=== PATIENT | female | born 1995 | race Caucasian/White ===

== ENCOUNTER 2021-08-22 01:49 | Emergency (ER) | payer OTHER ==
[~2021-08-22] VITALS: Ht 165.1 cm; Wt 114.8 kg
[2021-08-22 01:54] VITALS: BP 136/62
--- NOTE | 2021-08-22 01:59 | NUR ---
patient to bed 11 ambulatory
--- NOTE | 2021-08-22 02:11 | NUR ---
Patient discharged with v/s stable BY ERMD. Written and verbal after care instructions given and explained. Patient verbalized understanding. Ambulatory with steady gait. All questions addressed prior to discharge. Advised to follow up with PMD.
[2021-08-22 02:12] VITALS: BP 136/62
== END 2021-08-22 02:11 | disposition home or self-care (01) ==
LOC: MED 01:49
DX: R04.0 Epistaxis (principal); E05.90 Thyrotoxicosis, unspecified without thyrotoxic crisis or storm
CPT/HCPCS: 99282

== ENCOUNTER 2022-03-10 16:20 | Inpatient (IN) | payer OTHER ==
[~2022-03-10] VITALS: Ht 165.1 cm; Wt 106.6 kg
[2022-03-10 16:24] VITALS: BP 128/68
--- NOTE | 2022-03-10 17:02 | NUR ---
PT AMBULATED TO ER BED 9
[2022-03-10] MEDS ORDERED: DICYCLOMINE HCL LIQUID 20 MG, ALUMINUM HYD/MAG/SIMETHICONE 30 ML, LIDOCAINE VISCOUS 2% ... PO ONE ×3 (17:20)
[2022-03-10] MEDS ORDERED: MORPHINE SULFATE 4 MG/ML SYR IVP ONE (17:20)
[2022-03-10] MEDS ORDERED: ONDANSETRON 4 MG/2 ML VIAL IVP ONE (17:20)
[2022-03-10] MEDS ORDERED: ALUMINUM HYD/MAG/SIMETHICONE 30 ML UDC ONE (17:27)
[2022-03-10] MEDS ORDERED: DICYCLOMINE HCL LIQUID 10 MG/5 ML UDC ONE (17:27)
[2022-03-10 17:35] LABS: APPEARANCE,URINE CLEAR (CLEAR); BILIRUBIN,URINE 1+ (NEGATIVE); BLOOD, URINE 1+ (NEGATIVE); COLOR,URINE YELLOW (YELLOW); LEUKOCYTE ESTERASE ,URINE NEGATIVE (NEGATIVE); NITRITE, URINE NEGATIVE (NEGATIVE); UGLUCOSE NEGATIVE (NEGATIVE)
[2022-03-10 17:39] LABS: BASOPHILS % (AUTO) 0.3 % (0.0-2.0); EOSINOPHILS # (AUTO) 0.1 K/uL (0-0.4); EOSINOPHILS % (AUTO) 0.6 % (0.0-4.0); HEMATOCRIT 42.5 % (36-48); LYMPHOCYTES # (AUTO) 2.1 K/uL (2.5-16.5); LYMPHOCYTES % (AUTO) 17.4 % (20.5-51.1); MEAN CORPUSCULAR HEMOGLOBIN 27 pg (27-31); MEAN CORPUSCULAR HGB CONC 33 g/dL (33-37); MEAN CORPUSCULAR VOLUME 82.3 fL (80-94); MONOCYTES # (AUTO) 0.9 K/uL (0.8-1.0); MONOCYTES % (AUTO) 7.7 % (1.7-9.3); NEUTROPHILS # (AUTO) 8.8 K/uL (1.8-7.7); PLATELET COUNT (AUTO) 343 K/uL (140-450); RED BLOOD CELL COUNT(AUTO) 5.17 MIL/uL (4.20-5.40); RED CELL DISTRIBUTION WIDTH 14.3 % (11.6-13.7); WHITE BLOOD COUNT (AUTO) 11.9 K/uL (4.8-10.8)
[2022-03-10 17:53] LABS: ALBUMIN 3.2 g/dL (3.4-5.0); ANION GAP 9.4 (8-16); CARBON DIOXIDE 27.3 mmol/L (21-32); CREATININE 0.9 mg/dL (0.6-1.3); POTASSIUM 3.7 mmol/L (3.5-5.1); TOTAL BILIRUBIN 1.6 mg/dL (0.0-1.0)
[2022-03-10 18:01] LABS: WBC,URINE NONE SEEN /HPF (0-5)
--- NOTE | 2022-03-10 18:10 | NUR ---
PT C/O RUQ ABDOMINAL PAIN WITH BURNING X2 DAYS. IV INSERTED TO RIGHT AC #20GUAGE. MEDICATED PER ORDER. US AT BEDSIDE
[2022-03-10] MEDS ORDERED: MORPHINE SULFATE 4 MG/ML SYR IVP PRN (18:40)
[2022-03-10] MEDS ORDERED: NACL 0.9% 1,000 ML IV ONE (18:40)
[2022-03-10] MEDS ORDERED: LEVO0.124 PO (19:37)
--- NOTE | 2022-03-10 19:37 | NUR ---
VINCE/SAV SWABBED AND WALKED TO LAB
[2022-03-10] MEDS ORDERED: MAG SULF 2000 MG/WATER PREMIX 50 ML IV PRN (20:15)
[2022-03-10] MEDS ORDERED: POTASSIUM CHLORIDE 10 MEQ TABER PO PRN (20:15)
[2022-03-10] MEDS ORDERED: ACETAMINOPHEN 325 MG TAB PO PRN (20:15)
[2022-03-10] MEDS ORDERED: HYDROcodone/APAP 5/325 MG 1 TAB TAB PO PRN (20:15)
[2022-03-10] MEDS ORDERED: MAGNESIUM OXIDE 400 MG TAB PO PRN (20:15)
[2022-03-10] MEDS ORDERED: KCL 20 MEQ/WATER INJ PREMIX 200 ML IV PRN (20:15)
--- NOTE | 2022-03-10 21:35 | NUR ---
Patient will be admitted to care of DR OSMAN. Admited to Med/Surg. Will go to room 104B. Belongings list completed. Report to YANET ROSS.
--- NOTE | 2022-03-10 21:35 | NUR ---
RECEIVED PATIENT FROM ER AND ADMITTED TO ROOM 104B VIA GURNEY. AWAKE, ALERT, AND ABLE TO MAKE NEEDS KNOWN. VERBALLY RESPONSIVE. PT AMBULATE ON STEADY GAIT INDEPENDENTLY. SKIN INTACT AND DRY. NO APPARENT SKIN PROBLEM. IV SITE ON LEFT AC INTACT AND PATENT. BEARABLE & TOLERABLE PAIN OF 1/10 ON EPIGASTRIC AREA FELT. PT IS ON NPO EXCEPT MEDS. ORIENT PT TO ROOM AND SURROUNDINGS AND HOW TO USE CONTROLLER DEVICE IN THE ROOM. PATIENT VERBALIZED UNDERSTANDING.
[2022-03-10] MEDS: LACTATED RINGERS 1,000 ML IV SCH (22:00)
--- NOTE | 2022-03-11 02:00 | NUR ---
PT IS ASLEEP WITH NO FACIAL GRIMACING.
[2022-03-11] MEDS: LACTATED RINGERS 1,000 ML IV SCH ×4 (02:55→23:48)
[2022-03-11 04:00] VITALS: BP 108/54
--- NOTE | 2022-03-11 05:15 | NUR ---
PT AWAKE AND USE RESTROOM INDEPENDENTLY. NO COMPLAINT OF PAIN.
[2022-03-11 07:14] LABS: BASOPHILS % (AUTO) 0.4 % (0.0-2.0); EOSINOPHILS # (AUTO) 0.1 K/uL (0-0.4); EOSINOPHILS % (AUTO) 1.1 % (0.0-4.0); HEMATOCRIT 36.7 % (36-48); LYMPHOCYTES # (AUTO) 3.1 K/uL (2.5-16.5); LYMPHOCYTES % (AUTO) 28.8 % (20.5-51.1); MEAN CORPUSCULAR HEMOGLOBIN 27 pg (27-31); MEAN CORPUSCULAR HGB CONC 33 g/dL (33-37); MEAN CORPUSCULAR VOLUME 82.8 fL (80-94); MONOCYTES # (AUTO) 0.6 K/uL (0.8-1.0); MONOCYTES % (AUTO) 5.7 % (1.7-9.3); NEUTROPHILS # (AUTO) 6.9 K/uL (1.8-7.7); PLATELET COUNT (AUTO) 289 K/uL (140-450); RED BLOOD CELL COUNT(AUTO) 4.43 MIL/uL (4.20-5.40); RED CELL DISTRIBUTION WIDTH 14.5 % (11.6-13.7); WHITE BLOOD COUNT (AUTO) 10.8 K/uL (4.8-10.8)
[2022-03-11 07:24] LABS: ALBUMIN 2.7 g/dL (3.4-5.0); ANION GAP 8.3 (8-16); CARBON DIOXIDE 29.4 mmol/L (21-32); CREATININE 0.8 mg/dL (0.6-1.3); MAGNESIUM 2.1 mg/dL (1.8-2.4); POTASSIUM 3.7 mmol/L (3.5-5.1); TOTAL BILIRUBIN 0.8 mg/dL (0.0-1.0)
--- NOTE | 2022-03-11 07:30 | NUR ---
RECEIVED PT CARE AND REPORT FROM VANDANA HOLT. PT IS RESTING ON RIGHT SIDE WITH OU CLOSED. NO VISIBLE S/S OF DISTRESS, DISCOMFORT, PAIN OR SOB. IV FLUIDS INFUSING. CALL LIGHT WITHIN REACH, ALL NEEDS MET AT THIS TIME.
[2022-03-11 08:00] VITALS: BP 105/67
[2022-03-11] MEDS: MORPHINE SULFATE 2 MG/ML SYR IVP PRN (08:53)
[2022-03-11] MEDS: ONDANSETRON 4 MG/2 ML VIAL IVP PRN (08:53)
--- NOTE | 2022-03-11 08:54 | NUR ---
PATIENT HAS BEEN SCREENED AND CATEGORIZED HIGH NUTRITION RISK. PATIENT WILL BE SEEN WITHIN 1-2 DAYS OF ADMISSION. REFERRAL RECEIVED NOT APPLICABLE [address]BAR[address]
--- NOTE | 2022-03-11 09:14 | NUR ---
DC PLANNIN YRS OLD FEMALE PATIENT WAS ADMITTED FROM HOME WITH A DX OF GALLSTONE AND PANCREATITIS. PATIENT HAS A HX OF OBESITY, HLD AND HTN. GALLBLADDER US SHOWED ENLARGED FATTY LIVER. RAPID COVID TEST NEGATIVE. LIPASE LEVEL ON ADMISSION [id number] ADMINISTERED IVF AND MORPHINE IV FOR PAIN. CANCELLED THE MRCP ORDER. CONSULTED WITH SURGEON DR GALLOWAY. DC PLAN TO GO HOME WHEN STABLE CM TO FOLLOW Addendum: 03/12/22 at 1142 by Basia Garcia RN DC PLANNING: PATIENT SCHEDULED FOR LAP DON INTRAOPERATIVE CHOLANGIOGRAM POSSIBLE OPEN BY DR DAVID. CONTINUE IVF AND PAIN MEDS. DC PLAN TO GO HOME WHEN STABLE. CM TO FOLLOW
--- NOTE | 2022-03-11 12:17 | NUR ---
OBTAINED CONSENT FOR LAP DON AND PLACED IN CHART.
--- NOTE | 2022-03-11 13:23 | NUR ---
DC PLANNING PATIENT IS A 26 YR OLD FEMALE ADMITTED TO [facility] ON 03/10/22 FOR DX OF GALLSTONES AND PANCREATITIS. PATIENT HAS HX OF OBESITY, HLD AND HTN. SW MET WITH PATIENT AT BEDSIDE TO GATHER COLLATERAL INFORMATION. PT REPORTS RESIDING WITH HER FAMILY;PARENTS, SISTER, NIECE, AND BROTHER IN LAW. PATIENT REPORTS EMERGENCY CONTACT AND M.D.M OMKAR GAMBOA. PATIENT DENIED HAVING AD IN PLACE AND ACCEPTED A.D PACKET PROVIDED BY [facility]. PATIENT REPORTS MEETING WITH HER PCP EVERY THREE MONTHS, LAST VISIT DECEMBER 2021. SW SPOKE TO PATIENT ABOUT THE IMPORTANCE OF FOLLOW UP CARE, PATIENT WAS RECEPTIVE AND PROVIDED SW WITH PERMISSION TO SCHEDULE FOLLOW UP APPT, ONCE CLEARED FOR DC. PATIENT REPORTS BEING MEDICATION COMPLIANT AND DENIES BARRIERS IN ACQUIRING MEDICATION. PATIENT REPORTS PICKING UP MEDICATION FROM [facility] [address] IN [place], WHEN NEEDED. PATIENT REPORTS BEING INDEPENDENT IN ALL ACTIVITIES AND DENIES USE OF DME. PATIENT REPORTS ADEQUATE FRIEND AND FAMILY SUPPORT. TENTAIVE DC PLANS IS FOR PATIENT TO RETURN HOME WITH FAMILY PROVIDING TRANSPORTATION AND AIDING IN HER CARE IF REQUIRED.
[2022-03-11 16:00] VITALS: BP 131/78
--- NOTE | 2022-03-11 17:55 | NUR ---
PT IS RESTING IN BED, SITTING UP, A&OX4, APPEARS CALM. VISITOR AT BEDSIDE. NO VISIBLE S/S OF DISTRESS OR DISCOMFORT. DENIES ANY PAIN OR SOB. CALL LIGHT WITHIN REACH, ALL NEEDS MET AT THIS TIME.
[2022-03-11 20:00] VITALS: BP 131/78
--- NOTE | 2022-03-11 20:40 | NUR ---
PT IS SITTING ON THE CHAIR, ON BEDSIDE, ON STABLE CONDITION. STANDING UP TO FIX THE GOWN INDEPENDENTLY ON STEADY GAIT, DENIES ANY PAIN, HEADACHE NAUSEA OR VOMITING.
[2022-03-12] MEDS: MORPHINE SULFATE 2 MG/ML SYR IVP PRN ×2 (00:06→06:38)
--- NOTE | 2022-03-12 00:06 | NUR ---
PT COMPLAINTS OF ABDOMINAL PAIN ON EPIGASTRIC AREA 04/11. PAIN MEDICATION (MORPHINE) ADMINISTERED ORDERED.
[2022-03-12] MEDS: LACTATED RINGERS 1,000 ML IV SCH ×3 (06:35→22:26)
[2022-03-12 07:09] LABS: BASOPHILS % (AUTO) 0.3 % (0.0-2.0); EOSINOPHILS # (AUTO) 0.1 K/uL (0-0.4); EOSINOPHILS % (AUTO) 1.4 % (0.0-4.0); HEMATOCRIT 34.5 % (36-48); HEMOGLOBIN 11.3 g/dL (12.0-16.0); LYMPHOCYTES % (AUTO) 30.3 % (20.5-51.1); MEAN CORPUSCULAR HEMOGLOBIN 27 pg (27-31); MEAN CORPUSCULAR HGB CONC 33 g/dL (33-37); MONOCYTES # (AUTO) 0.7 K/uL (0.8-1.0); MONOCYTES % (AUTO) 7.6 % (1.7-9.3); NEUTROPHILS # (AUTO) 5.9 K/uL (1.8-7.7); NEUTROPHILS % (AUTO) 60.4 % (42.2-75.2); PLATELET COUNT (AUTO) 249 K/uL (140-450); RED CELL DISTRIBUTION WIDTH 14.6 % (11.6-13.7); WHITE BLOOD COUNT (AUTO) 9.8 K/uL (4.8-10.8)
[2022-03-12 07:26] LABS: ALBUMIN 2.6 g/dL (3.4-5.0); ANION GAP 9.1 (8-16); CARBON DIOXIDE 29.6 mmol/L (21-32); CREATININE 0.8 mg/dL (0.6-1.3); POTASSIUM 3.7 mmol/L (3.5-5.1); TOTAL BILIRUBIN 0.5 mg/dL (0.0-1.0)
--- NOTE | 2022-03-12 07:30 | NUR ---
RECEIVED PT CARE AND REPORT FROM VANDANA HOLT. PT IS RESTING IN BED WITH FACE COVERED WITH PILLOW, SUPINE. NO VISIBLE S/S OF DISTRESS, DISCOMFORT, PAIN OR SOB. IV FLUIDS INFUSING VIA LAC. CALL LIGHT WITHIN REACH, ALL NEEDS MET AT THIS TIME.
[2022-03-12] MEDS ORDERED: LIDOCAINE/EPI 1% 1:100000 20 ML VIAL INJ ONE (08:24)
[2022-03-12] MEDS ORDERED: BUPIVACAINE MPF 0.25% 10 ML VIAL INJ ONE (08:24)
--- NOTE | 2022-03-12 11:49 | NUR ---
PT LEAVING TO OR FOR SURGERY, ACCOMPANIED BY OR NURSE. MOTHER AT BEDSIDE. PT IS A&OX4, APPEARS MILDLY ANXIOUS FOR PROCEDURE. DISCONNECTED FROM IV FLUIDS. PT TAKEN VIA BED.
[2022-03-12] MEDS ORDERED: MEPERIDINE 25 MG/ML SYR IVP PRN (11:50)
[2022-03-12] MEDS ORDERED: ONDANSETRON 4 MG/2 ML VIAL IVP PRN (11:50)
[2022-03-12] MEDS ORDERED: LACTATED RINGERS 1,000 ML IV SCH (11:50)
[2022-03-12] MEDS ORDERED: diphenhydrAMINE 50 MG/ML VIAL IVP PRN (11:50)
[2022-03-12] MEDS ORDERED: HYDROmorphone 1 MG/ML AMP IVP PRN (11:50)
[2022-03-12] MEDS ORDERED: fentaNYL citrate 0.05 MG/ML VIAL ONE (11:54)
[2022-03-12] MEDS ORDERED: SUCCINYLCHOLINE CHLORIDE 200 MG/10 ML VIAL IVP ONE (11:55)
[2022-03-12] MEDS ORDERED: PROPOFOL 200 MG/20 ML VIAL IV ONE (11:55)
--- NOTE | 2022-03-12 12:50 | NUR ---
PT RETURNED TO ROOM FROM OR D/T EMERGENCY SURGERY TAKING PRIORITY. OR NURSE STATED THAT THEY WOULD RETURN FOR PICKUP ONCE READY. CHART LEFT ON PT BED. Addendum: 03/12/22 at 1306 by Agency Nurse YANET Spann RN PT IS A&OX4, APPEARS CALM. DENIES ANY DISTRESS OR DISCOMFORT.
[2022-03-12] MEDS ORDERED: ceFAZolin 1,000 MG VIAL ONE (13:56)
[2022-03-12] MEDS ORDERED: ROCURONIUM 50 MG/5 ML VIAL IV ONE (14:06)
[2022-03-12] MEDS ORDERED: MEPERIDINE 50 MG/ML SYR ONE (14:11)
[2022-03-12] MEDS ORDERED: ONDANSETRON 4 MG/2 ML VIAL ONE (14:24)
[2022-03-12] MEDS ORDERED: DEXAMETHASONE 4 MG/ML VIAL ONE ×2 (14:24)
[2022-03-12] MEDS ORDERED: SUGAMMADEX SODIUM 200 MG/2 ML VIAL IV ONE (14:44)
[2022-03-12] MEDS ORDERED: MEPERIDINE 25 MG/ML SYR ONE (15:30)
--- NOTE | 2022-03-12 15:50 | NUR ---
PT RETURNED FROM SURGERY. PT IS COMPLAINING OF NAUSEA AND PAIN AT THIS TIME. A&OX4, SLEEPY, APPEARS CALM. FAMILY AT BEDSIDE. WILL MEDICATE ORDERED.
[2022-03-12] MEDS: ONDANSETRON 4 MG/2 ML VIAL IVP PRN (16:18)
--- NOTE | 2022-03-12 18:20 | NUR ---
PT IS RESTING IN BED SEMI-FOWLERS WITH OU CLOSED. NO VISIBLE S/S OF DISTRESS, DISCOMFORT, PAIN OR SOB. CALL LIGHT WITHIN REACH, ALL NEEDS MET AT THIS TIME. WILL ENDORSE TO NOC SHIFT.
--- NOTE | 2022-03-12 18:45 | NUR ---
PT WAS GIVEN DILAUDID 1MG IV PRN AT 1640. HOWEVER, SCANNED MED WAS NOT SAVED ON EMAR AND DOES NOT SHOW THAT IT WAS GIVEN. CALLED PHARMACY AND SPOKE WITH HU. STATED TO MAKE A NOTE THAT IT WAS GIVEN AND NOT SAVED. WILL WRITE IN SBAR AND ENDORSE TO NOC SHIFT THAT DILAUDID WAS GIVEN AT 1640 AND TO NOT GIVE NEXT DOSE UNTIL DUE.
--- NOTE | 2022-03-12 19:00 | NUR ---
RECEIVED ENDORSEMENT FROM YANET DERAS FOR CONTINUITY OF CARE. PATIENT IS STABLE AND AWAKE. PATIENT IS CURRENTLY EATING DINNER TRAY WITH A FAMILY MEMBER AT BEDSIDE. A&OX4. VERBALLY RESPONSIVE AND ABLE TO COMMUNICATE NEEDS. PATIENT IS S/P LAP CHOLY. PATIENT DENIES PAIN. ON ROOM AIR. RESPIRATIONS EVEN AND UNLABORED WITH NO APPARENT S/SX OF ACUTE DISTRESS. PATIENT'S IV SITE TO THE LAC20G IS PATENT/INTACT WITH LR INFUSING. PATIENT IS AMBULATORY. SKIN IS INTACT. PATIENT IS CONTINENT OF VOID AND BM. PLAN OF CARE UPDATED. WHITE COMMUNICATION BOARD UPDATED. ALL SAFETY MEASURES IN PLACE. CALL LIGHT WITHIN REACH. WILL CONTINUE TO MONITOR.
[2022-03-12 20:00] VITALS: BP 133/81
--- NOTE | 2022-03-12 20:00 | NUR ---
Patient's Plan of Care was discussed and reviewed with ASSISTANT STORE MANAGER TRAINEE: KENNETH DEWITT
[2022-03-12] MEDS: HYDROcodone/APAP 5/325 MG 1 TAB TAB PO PRN (20:28)
--- NOTE | 2022-03-12 21:00 | NUR ---
PER DR. CAT, PATIENT WILL STAY ON LR UNTIL TOMORROW MORNING WHEN HE DOES HIS ROUNDS. PATIENT REPORTS PAIN IS NOW TOLERABLE. RESPIRATIONS EVEN AND UNLABORED WITH NO APPARENT S/SX OF ACUTE DISTRESS. AUSCULTATED ABDOMEN FOR BOWEL SOUNDS AND HYPOACTIVE AT THIS TIME. PATIENT REPORTS SHE IS ABLE TO VOID BUT NOT ABLE TO PASS GAS OR HAVE A BM AT THIS TIME. WHITE COMMUNICATION BOARD UPDATED. ALL SAFETY MEASURES IN PLACE. CALL LIGHT WITHIN REACH. WILL CONTINUE TO MONITOR.
--- NOTE | 2022-03-12 23:00 | NUR ---
PATIENT IS STABLE AND ASLEEP. CHEST IS RISING AND FALLING EVENLY. RESPIRATIONS EVEN AND UNLABORED WITH NO APPARENT S/SX OF ACUTE DISTRESS. WHITE COMMUNICATION BOARD UPDATED. ALL SAFETY MEASURES IN PLACE. CALL LIGHT WITHIN REACH. WILL CONTINUE TO MONITOR..
[2022-03-13] MEDS: HYDROmorphone 1 MG/ML AMP IVP PRN ×2 (00:34→07:49)
--- NOTE | 2022-03-13 01:00 | NUR ---
ANSWERED CALL LIGHT. ASSISTED PATIENT TO BR. TOLERATED WELL. PATIENT REPORTED SHE VOIDED AND BURPED. PATIENT REPORTS PAIN MEDICATION IS HELPING AND PAIN IS CURRENTLY TOLERABLE. RESPIRATIONS EVEN AND UNLABORED WITH NO APPARENT S/SX OF ACUTE DISTRESS. WHITE COMMUNICATION BOARD UPDATED. ALL SAFETY MEASURES IN PLACE. CALL LIGHT WITHIN REACH. WILL CONTINUE TO MONITOR.
[2022-03-13] MEDS: LACTATED RINGERS 1,000 ML IV SCH (01:35)
--- NOTE | 2022-03-13 03:30 | NUR ---
ENDORSED PATIENT TO YANET CARRINGTON FOR TRANSFER OF CARE. PATIENT IS STABLE.
--- NOTE | 2022-03-13 03:35 | NUR ---
GET THE REPORT FROM NIGHT NURSE KENNETH, PATIENT IS ALERT ORIENTED X4 , NO ANY COMPLAIN OF PAIN OR SHORTNESS OF BREATH AT THIS TIME , CALL LIGHT IS WITHIN THE REACH, WILL CONTINUE TO MONITOR PATIENT.
[2022-03-13 04:00] VITALS: BP 124/72
--- NOTE | 2022-03-13 04:00 | NUR ---
PATIENT IS LYING ON BED,VITAL SIGN IS WITHIN THE NORMAL RANGE, NO ANY COMPLAIN OF PAIN OR SHORTNESS OF BREATH AT THIS TIME, ALL SCHEDULE MEDICATION IS GIVEN PER DOCTOR ORDER, CALL LIGHT IS WITHIN THE REACH, WILL CONTINUE TO MONITOR PATIENT.
[2022-03-13] MEDS: HYDROcodone/APAP 5/325 MG 1 TAB TAB PO PRN ×3 (04:19→16:01)
--- NOTE | 2022-03-13 04:20 | NUR ---
PATIENT IS COMPLAINING OF PAIN IN HER SURGERY SITE 03/12 , MEDICATED WITH NORCO 5/325MG PO PRN FOR PAIN PER DOCTOR ORDER, VITAL SIGN IS WITHIN THE NORMAL RANGE ,CALL LIGHT IS WITHIN THE REACH, WILL CONTINUE TO MONITOR PATIENT.
--- NOTE | 2022-03-13 06:18 | NUR ---
PATIENT IS LYING ON BED, ALL SCHEDULE MEDICATION IS GIVEN PER DOCTOR ORDER, CALL LIGHT IS WITHIN THE REACH, WILL CONTINUE TO MONITOR PATIENT.
--- NOTE | 2022-03-13 06:54 | NUR ---
GAVE REPORT TO NIGHT NURSE CECILIA FOR CONTINUOS OF CARE PATIENT IS STABLE.
[2022-03-13 07:31] LABS: BASOPHILS % (AUTO) 0.1 % (0.0-2.0); HEMATOCRIT 33.6 % (36-48); HEMOGLOBIN 11.1 g/dL (12.0-16.0); LYMPHOCYTES # (AUTO) 1.9 K/uL (2.5-16.5); LYMPHOCYTES % (AUTO) 15.2 % (20.5-51.1); MEAN CORPUSCULAR HEMOGLOBIN 27 pg (27-31); MEAN CORPUSCULAR HGB CONC 33 g/dL (33-37); MEAN CORPUSCULAR VOLUME 82.2 fL (80-94); MONOCYTES # (AUTO) 0.8 K/uL (0.8-1.0); MONOCYTES % (AUTO) 6.4 % (1.7-9.3); NEUTROPHILS # (AUTO) 9.9 K/uL (1.8-7.7); NEUTROPHILS % (AUTO) 78.3 % (42.2-75.2); PLATELET COUNT (AUTO) 286 K/uL (140-450); RED BLOOD CELL COUNT(AUTO) 4.09 MIL/uL (4.20-5.40); RED CELL DISTRIBUTION WIDTH 14.5 % (11.6-13.7); WHITE BLOOD COUNT (AUTO) 12.6 K/uL (4.8-10.8)
[2022-03-13 07:44] LABS: ALBUMIN 2.7 g/dL (3.4-5.0); ANION GAP 10.2 (8-16); CARBON DIOXIDE 28.2 mmol/L (21-32); CREATININE 0.8 mg/dL (0.6-1.3); MAGNESIUM 1.8 mg/dL (1.8-2.4); POTASSIUM 4.4 mmol/L (3.5-5.1)
[2022-03-13 08:09] LABS: TOTAL BILIRUBIN 0.3 mg/dL (0.0-1.0)
[2022-03-13] MEDS ORDERED: HYDROmorphone 1 MG/ML AMP IVP PRN (09:05)
[2022-03-13] MEDS ORDERED: ACET-9525 PO ×2 (09:08→11:36)
[2022-03-13] MEDS ORDERED: DOCU-2 PO (09:08)
[2022-03-13] MEDS ORDERED: DOCU-299 PO (13:35)
[2022-03-13 15:34] VITALS: BP 133/87
== END 2022-03-13 16:37 | disposition home or self-care (01) | DRG 263 ==
LOC: MED 16:20 → MMU 20:36 → MTU 20:56
PROVIDERS: ADMIT Student in an Organized Health Care Education/Training Program; ATTEND Student in an Organized Health Care Education/Training Program
PROC: 0FT44ZZ Resection of Gallbladder, Percutaneous Endoscopic Approach (ICD-10-PCS; principal; 2022-03-12 12:00)
DX: K85.10 Biliary acute pancreatitis without necrosis or infection (principal); K80.00 Calculus of gallbladder with acute cholecystitis without obstruction; E66.9 Obesity, unspecified; E78.5 Hyperlipidemia, unspecified; K21.9 Gastro-esophageal reflux disease without esophagitis; R74.01 Elevation of levels of liver transaminase levels; Z20.822 Contact with and (suspected) exposure to COVID-19; Z68.39 Body mass index [BMI] 39.0-39.9, adult
CPT/HCPCS: 36415; 76705; 80053; 81001; 83690; 83735; 85025; 87081; 96361; 96374; 96375; 99285; J0330; J0690; J1100; J1170; J2001; J2175; J2270; J2405; J2704; J3010; J3490; J7030; Q0092

== ENCOUNTER 2022-05-04 05:54 | Emergency (ER) | payer OTHER ==
[~2022-05-04] VITALS: Ht 165.1 cm; Wt 104.3 kg
[~2022-05-04 05:54] MED LIST: ACET-9525 PO; DOCU-299 PO; LEVO0.124 PO
[2022-05-04 05:58] VITALS: BP 140/82
--- NOTE | 2022-05-04 07:09 | NUR ---
PT BEING EVALUATED BY ERMFabrizio AT [facility].
[2022-05-04] MEDS ORDERED: hydrOXYzine PAMOATE 25 MG CAP PO ONE (07:15)
[2022-05-04] MEDS ORDERED: KETOROLAC 30 MG/ML VIAL IM ONE (07:15)
--- NOTE | 2022-05-04 07:33 | NUR ---
26 Y/O FEMALE C/O LEFT SHOULDER PAIN DESCRIBES SHARP RADIATES TO CHEST X 3 DAYS. DENIES INJURY/TRAUMA. DENIES FEVER/CHILLS. DENIES N/V/D. PMH: GALLBLADDER REMOVAL, HYPOTHYROID, ANXIETY NKA
--- NOTE | 2022-05-04 08:28 | NUR ---
LIAD REEVALUATING PT IN [facility].
[2022-05-04] MEDS ORDERED: IBUP-2213 PO (08:31)
[2022-05-04] MEDS ORDERED: HYDR25CA1 PO (08:31)
[2022-05-04 08:53] VITALS: BP 129/78
--- NOTE | 2022-05-04 08:53 | NUR ---
Patient discharged with v/s stable. Written and verbal after care instructions given FOR LEFT SHOULDER PAIN AND LIVING WITH ANXIETY and explained. Patient alert, oriented and verbalized understanding of instructions. Ambulatory with steady gait. All questions addressed prior to discharge. ID band removed. Patient advised to follow up with PMD. Rx of IBUPROFEN AND VISTARIL given. Patient educated on indication of medication including possible reaction and side effects. Opportunity to ask questions provided and answered.
== END 2022-05-04 08:53 | disposition home or self-care (01) ==
LOC: MED 05:54
DX: M25.512 Pain in left shoulder (principal); K21.9 Gastro-esophageal reflux disease without esophagitis; E07.9 Disorder of thyroid, unspecified; Z79.899 Other long term (current) drug therapy
CPT/HCPCS: 73030; 93005; 96372; 99283; J1885; Q0177

== ENCOUNTER 2022-06-13 10:35 | Emergency (ER) | payer OTHER ==
[~2022-06-13] VITALS: Ht 165.1 cm; Wt 103.0 kg
[~2022-06-13 10:35] MED LIST changes: +HYDR25CA1 PO; +IBUP-2213 PO
[2022-06-13 10:46] VITALS: BP 126/83
--- NOTE | 2022-06-13 10:49 | NUR ---
AMBULATED TO BED 12
--- NOTE | 2022-06-13 11:25 | NUR ---
PT C/O RLQ ABDOMINAL PAIN RADIATING TO BACK SINCE LAST NIGHT.
[2022-06-13 12:02] LABS: BASOPHILS # (AUTO) 0.1 K/uL (0.00-0.22); BASOPHILS % (AUTO) 0.6 % (0.0-2.0); EOSINOPHILS # (AUTO) 0.1 K/uL (0-0.4); EOSINOPHILS % (AUTO) 1.5 % (0.0-4.0); HEMATOCRIT 38.1 % (36-48); HEMOGLOBIN 12.5 g/dL (12.0-16.0); LYMPHOCYTES # (AUTO) 3.1 K/uL (2.5-16.5); LYMPHOCYTES % (AUTO) 36.6 % (20.5-51.1); MEAN CORPUSCULAR HEMOGLOBIN 26 pg (27-31); MEAN CORPUSCULAR HGB CONC 33 g/dL (33-37); MEAN CORPUSCULAR VOLUME 78.1 fL (80-94); MONOCYTES # (AUTO) 0.5 K/uL (0.8-1.0); MONOCYTES % (AUTO) 6.5 % (1.7-9.3); NEUTROPHILS # (AUTO) 4.7 K/uL (1.8-7.7); NEUTROPHILS % (AUTO) 54.8 % (42.2-75.2); PLATELET COUNT (AUTO) 306 K/uL (140-450); RED BLOOD CELL COUNT(AUTO) 4.88 MIL/uL (4.20-5.40); RED CELL DISTRIBUTION WIDTH 16.2 % (11.6-13.7); WHITE BLOOD COUNT (AUTO) 8.5 K/uL (4.8-10.8)
[2022-06-13 12:06] LABS: BILIRUBIN,URINE NEGATIVE (NEGATIVE); BLOOD, URINE 1+ (NEGATIVE); COLOR,URINE YELLOW (YELLOW); LEUKOCYTE ESTERASE ,URINE 1+ (NEGATIVE); NITRITE, URINE NEGATIVE (NEGATIVE); UGLUCOSE NEGATIVE (NEGATIVE)
[2022-06-13 12:08] LABS: APPEARANCE,URINE HAZY (CLEAR)
[2022-06-13 12:28] LABS: URINE AMORPHOUS URATE 1+ /HPF (None Seen)
[2022-06-13 12:29] LABS: ALBUMIN 3.3 g/dL (3.4-5.0); ANION GAP 12.9 (8-16); CARBON DIOXIDE 26.2 mmol/L (21-32); CREATININE 0.9 mg/dL (0.6-1.3); POTASSIUM 4.1 mmol/L (3.5-5.1); TOTAL BILIRUBIN 0.4 mg/dL (0.0-1.0)
[2022-06-13] MEDS ORDERED: NITR100C7 PO (12:47)
[2022-06-13] MEDS ORDERED: IBUP-2213 PO (12:47)
[2022-06-13 13:41] VITALS: BP 108/74
--- NOTE | 2022-06-13 13:42 | NUR ---
Patient discharged with v/s stable. Written and verbal after care instructions given and explained. Patient alert, oriented and verbalized understanding of instructions. Ambulatory with steady gait. All questions addressed prior to discharge. ID band removed. Patient advised to follow up with PMD. Rx of MACROBID, MOTRIN given. Patient educated on indication of medication including possible reaction and side effects. Opportunity to ask questions provided and answered.
== END 2022-06-13 13:42 | disposition home or self-care (01) ==
LOC: MED 10:35
DX: N39.0 Urinary tract infection, site not specified (principal); R11.0 Nausea; K21.9 Gastro-esophageal reflux disease without esophagitis; E03.9 Hypothyroidism, unspecified; F41.9 Anxiety disorder, unspecified; Z90.49 Acquired absence of other specified parts of digestive tract; Z79.899 Other long term (current) drug therapy
CPT/HCPCS: 36415; 80053; 81001; 81025; 85025; 87086; 99284

== ENCOUNTER 2023-02-01 16:47 | Emergency (ER) | payer OTHER ==
[~2023-02-01] VITALS: Ht 165.1 cm; Wt 108.9 kg
[~2023-02-01 16:47] MED LIST changes: +NITR100C7 PO
[2023-02-01 17:02] VITALS: BP 162/91
--- NOTE | 2023-02-01 17:23 | NUR ---
PT AMBULATED TO ER BED 2
--- NOTE | 2023-02-01 17:35 | NUR ---
27YO FEMALE PT C/O CONSTANT BURNING EPIGASTRIC PAIN X1WEEK. PAIN AT MOST ON PRESSURE .REPORTS INITIAL INTERMITTENT ONSET [id number]. +NAUSEA AND DECREASE IN APPETITE. PT W/ HX PANCREATITIS AND STATES S/S TO. ABD NON TENDER OR DISTENDED. DENIES V/D, FEVER, CHILLS OR DYSURIA. PT AAOX4, HOB POSITIONED PER COMFORT. HX: PCOS, HYPOTHYROID NKA
[2023-02-01] MEDS ORDERED: ALUMINUM HYD/MAG/SIMETHICONE 30 ML UDC PO ONE (17:40)
[2023-02-01] MEDS ORDERED: FAMOTIDINE 20 MG TAB PO ONE (17:40)
[2023-02-01 18:07] LABS: BASOPHILS # (AUTO) 0.1 K/uL (0.00-0.22); BASOPHILS % (AUTO) 0.6 % (0.0-2.0); EOSINOPHILS # (AUTO) 0.2 K/uL (0-0.4); EOSINOPHILS % (AUTO) 1.8 % (0.0-4.0); HEMOGLOBIN 14.4 g/dL (12.0-16.0); LYMPHOCYTES % (AUTO) 32.5 % (20.5-51.1); MEAN CORPUSCULAR HEMOGLOBIN 29 pg (27-31); MEAN CORPUSCULAR HGB CONC 34 g/dL (33-37); MEAN CORPUSCULAR VOLUME 83.7 fL (80-94); MONOCYTES # (AUTO) 0.6 K/uL (0.8-1.0); NEUTROPHILS # (AUTO) 5.5 K/uL (1.8-7.7); NEUTROPHILS % (AUTO) 59.1 % (42.2-75.2); PLATELET COUNT (AUTO) 312 K/uL (140-450); RED BLOOD CELL COUNT(AUTO) 5.01 MIL/uL (4.20-5.40); RED CELL DISTRIBUTION WIDTH 14.2 % (11.6-13.7); WHITE BLOOD COUNT (AUTO) 9.2 K/uL (4.8-10.8)
[2023-02-01 18:25] LABS: ALBUMIN 3.7 g/dL (3.4-5.0); ANION GAP 13.1 (8-16); CARBON DIOXIDE 25.9 mmol/L (21-32); CREATININE 0.8 mg/dL (0.6-1.3); TOTAL BILIRUBIN 0.6 mg/dL (0.0-1.0)
[2023-02-01 18:33] LABS: BILIRUBIN,URINE NEGATIVE (NEGATIVE); BLOOD, URINE TRACE-I (NEGATIVE); COLOR,URINE YELLOW (YELLOW); LEUKOCYTE ESTERASE ,URINE TRACE (NEGATIVE); NITRITE, URINE NEGATIVE (NEGATIVE); UGLUCOSE NEGATIVE (NEGATIVE)
[2023-02-01 18:42] LABS: APPEARANCE,URINE HAZY (CLEAR)
[2023-02-01 19:10] LABS: RBC,URINE NONE SEEN /HPF (0-5); WBC,URINE 0-5 /HPF (0-5)
--- NOTE | 2023-02-01 19:22 | NUR ---
REPORT GIVEN TO ANASTASIYA HOLT. TRANSFER OF CARE AT THIS TIME
[2023-02-01] MEDS ORDERED: SUCR1TAB35 PO (19:33)
[2023-02-01] MEDS ORDERED: FAMO-92 PO (19:33)
[2023-02-01 20:16] VITALS: BP 162/91
--- NOTE | 2023-02-01 20:17 | NUR ---
Patient discharged with v/s stable. Written and verbal after care instructions given and explained. New rx pepcid and carafate. Patient verbalized understanding. Ambulatory with steady gait. All questions addressed prior to discharge. Advised to follow up with PMD.
== END 2023-02-01 20:17 | disposition home or self-care (01) ==
LOC: MED 16:47
DX: K27.9 Peptic ulcer, site unspecified, unspecified as acute or chronic, without hemorrhage or perforation (principal); E03.9 Hypothyroidism, unspecified; F41.9 Anxiety disorder, unspecified; K80.20 Calculus of gallbladder without cholecystitis without obstruction; Z79.899 Other long term (current) drug therapy; Z90.49 Acquired absence of other specified parts of digestive tract
CPT/HCPCS: 36415; 80053; 81001; 81025; 83690; 85025; 99283